=== PATIENT | male | born 1975 | race Caucasian/White ===

== ENCOUNTER 2016-07-26 11:00 | Emergency (ER) | payer MEDICAID ==
[~2016-07-26] VITALS: Ht 172.7 cm; Wt 114.3 kg
[~2016-07-26 11:00] MED LIST: LISI-646
[2016-07-26 12:13] LABS: Urine Bilirubin Negative (Negative); Urine Blood Negative /uL (Negative); Urine Color Yellow (Yellow); Urine Glucose Normal (Normal); Urine Hyaline Cast FEW /lpf (0 - 2); Urine Ketone Negative (Negative); Urine Nitrite Negative (Negative); Urine RBC <1 /hpf (0 - 3); Urine Squamous Epithelial Cell FEW /hpf (<5); Urine pH 7.5 (5.0-8.0)
[2016-07-26 12:44] LABS: Basophils # (auto) 0.1 uL; Basophils % (auto) 1.5 % (0.0-2.0); Eosinophils # (auto) 0 uL; Eosinophils % (auto) 0.3 % (0.0-7.0); Hematocrit 43.3 % (41.0-53.0); Hemoglobin 14.6 g/dL (13.5-17.5); Lymphocytes # (auto) 1.6 uL; Mean Corpuscular Hemoglobin 31.5 pg (28.0-32.0); Mean Corpuscular Hgb Conc. 33.6 g/dL (32.0-36.0); Mean Corpuscular Volume 93.8 fL (80.0-100.0); Mean Platelet Volume 8.7 fL (7.4-10.4); Monocytes # (auto) 0.6 uL; Monocytes % (auto) 7.4 % (0.0-12.0); Neutrophils # (auto) 5.7 uL; Neutrophils % (auto) 70.8 % (37.0-80.0); Platelet Count (auto) 180 10^3/uL (140-450)
[2016-07-26 12:54] LABS: BUN/Creatinine Ratio 19.8; Calcium 9.8 mg/dL (8.5-10.1); Potassium 4.3 mmol/L (3.5-5.1); Total Protein 9.2 g/dL (6.4-8.2)
[2016-07-26 19:35] LABS: Amylase 90 U/L (25-115)
[2016-07-26] MEDS ORDERED: METOPROLOL TARTRATE 50 MG TAB PO ONE (20:00)
[2016-07-27 01:18] VITALS: BP 141/99
[2016-07-28 09:06] LABS: PSA Free 0.1 ng/mL; Prostate Specific Antigen 0.4 ng/mL (0.0-4.0)
== END 2016-07-27 01:48 | disposition home or self-care (01) ==
LOC: ER 11:00
DX: K40.90 Unilateral inguinal hernia, without obstruction or gangrene, not specified as recurrent (principal); K57.90 Diverticulosis of intestine, part unspecified, without perforation or abscess without bleeding; R16.0 Hepatomegaly, not elsewhere classified; K76.0 Fatty (change of) liver, not elsewhere classified; Z79.899 Other long term (current) drug therapy; Z88.2 Allergy status to sulfonamides; I10 Essential (primary) hypertension
CPT/HCPCS: 36415; 74176; 76870; 80053; 81001; 82150; 83690; 84154; 85025; 94761

== ENCOUNTER 2018-01-05 07:35 | Inpatient (IN) | payer MEDICAID, OTHER ==
[~2018-01-05] VITALS: Ht 172.7 cm; Wt 103.1 kg
[2018-01-05] MEDS ORDERED: SODIUM CHLORIDE 0.9% 1,000 ML IV ONE ×3 (08:00→09:45)
[2018-01-05 08:14] LABS: Basophils # (auto) 0.1 uL; Basophils % (auto) 0.6 % (0.0-2.0); Eosinophils # (auto) 0 uL; Eosinophils % (auto) 0.1 % (0.0-7.0); Hematocrit 47.1 % (41.0-53.0); Lymphocytes # (auto) 2.3 uL; Lymphocytes % (auto) 15.8 % (10.0-50.0); Mean Corpuscular Hemoglobin 33.5 pg (28.0-32.0); Mean Corpuscular Volume 98.4 fL (80.0-100.0); Monocytes # (auto) 1.9 uL; Monocytes % (auto) 13.5 % (0.0-12.0); Neutrophils # (auto) 10.1 uL; Nucleated Red Blood Cells % 0.2 %; Platelet Count (auto) 194 10^3/uL (140-450); Red Blood Cells 4.78 10^6/uL (4.5-5.90); Red Cell Distribution Width 14.2 % (11.8-14.3); White Blood Cell 14.4 10^3/uL (4.4-10.8)
[2018-01-05 08:48] LABS: Alanine Aminotransferase 67 U/L (16-61); Albumin 4.2 g/dL (3.4-5.0); Alkaline Phosphatase 168 U/L (45-117); Anion Gap 24 (5-15); Aspartate Aminotransferase 123 U/L (15-37); Bilirubin, Total 3.1 mg/dL (0.2-1.0); Blood Alcohol < 3.0 mg/dL (0-5); Blood Urea Nitrogen 63 mg/dL (7-18); Calcium 10.1 mg/dL (8.5-10.1); Carbon Dioxide 20 mmol/L (21-32); Chloride 89 mmol/L (98-107); GFR African American 10 mL/min; GFR Non-African American 8 mL/min; Glucose 99 mg/dL (74-106); Potassium 3.6 mmol/L (3.5-5.1); Sodium 133 mmol/L (136-145); Total Protein 10.3 g/dL (6.4-8.2)
[2018-01-05] MEDS ORDERED: LORazepam 2MG/ML-1ML VIAL IV ONE ×2 (09:45)
[2018-01-05 10:32] LABS: INR 1.2 (0.9-1.15); Partial Thromboplastin Time 29.5 sec (23.78-33.04); Prothrombin Time 12.7 sec (9.27-12.13)
[2018-01-05] MEDS ORDERED: SODIUM CHLORIDE 0.9% 1,000 ML IV SCH (11:15)
[2018-01-05] MEDS ORDERED: chlordiazePOXIDE HCL 25 MG CAP PO ONE (11:15)
[2018-01-05] MEDS ORDERED: THIAMINE 100mg/ml INJ (200mg/2ml VIAL) IV ONE (11:15)
[2018-01-05] MEDS ORDERED: cefTRIAXone 1GM/10ml IVPUSH 10 ML IV ONE (11:15)
[2018-01-05] MEDS ORDERED: chlordiazePOXIDE HCL 25 MG CAP PO PRN (11:15)
[2018-01-05] MEDS ORDERED: LORazepam 2MG/ML-1ML VIAL IV PRN (11:15)
[2018-01-05] MEDS ORDERED: MORPHINE SULF INJ 2 MG/ML SYRINGE 1ML IV PRN ×3 (11:15)
[2018-01-05] MEDS ORDERED: TEMAZEPAM 15 MG CAP PO PRN (11:15)
[2018-01-05] MEDS ORDERED: NITROGLYCERIN 0.4 MG SL TAB SL PRN (11:15)
[2018-01-05] MEDS ORDERED: PROMETHAZINE HCL 25 MG/ML 1ML IV PRN (11:15)
[2018-01-05] MEDS ORDERED: LACTULOSE 20Gm/30ML SOLN PO PRN (11:15)
[2018-01-05] MEDS ORDERED: SODIUM CHLORIDE 0.9% 2,000 ML IV ONE (11:45)
[2018-01-05] MEDS: chlordiazePOXIDE HCL 5 MG CAP PO SCH ×2 (12:00→17:54)
[2018-01-05 12:10] LABS: Amylase 159 U/L (25-115); Lipase 374 U/L (73-393)
[2018-01-05] MEDS ORDERED: D5W IV SCH ×3 (12:15)
[2018-01-05] MEDS ORDERED: SOD CHL 0.45% IV SCH ×3 (12:15)
[2018-01-05] MEDS ORDERED: SODIUM BICARBONATE IV SCH ×3 (12:15)
[2018-01-05] MEDS: SODIUM BICARBONATE 50ML VIAL 50 ML in D5W/SOD CHL 0.45% 1,000 ML IV SCH ×2 (13:03→19:34)
[2018-01-05 13:57] LABS: Urine Bacteria NONE SEEN /hpf (None Seen); Urine Blood 3+ /uL (Negative); Urine Mucus FEW (None Seen); Urine Specific Gravity 1.014 (1.001-1.035); Urine WBC 23 /hpf (0 - 3)
[2018-01-05 16:24] LABS: Alcohol, Urine < 3.0 mg/dL (0-5); Amphetamine Screen, Urine NEGATIVE (NEGATIVE); Barbiturate Scree,Urine NEGATIVE (NEGATIVE); Benzodiazephine Screen, Urine NEGATIVE (NEGATIVE); Cannabinoid Screen, Urine POSITIVE (NEGATIVE); Cocaine Screen, Urine NEGATIVE (NEGATIVE); Opiate Scree,Urine NEGATIVE (NEGATIVE); Phencyclidine Screen, Urine NEGATIVE (NEGATIVE)
[2018-01-06] MEDS: chlordiazePOXIDE HCL 5 MG CAP PO SCH ×2 (00:12→06:27)
[2018-01-06] MEDS: SODIUM BICARBONATE 50ML VIAL 50 ML in D5W/SOD CHL 0.45% 1,000 ML IV SCH ×3 (02:35→16:35)
[2018-01-06 07:49] LABS: Albumin 3.1 g/dL (3.4-5.0); BUN/Creatinine Ratio 16.7; Bilirubin, Total 2.1 mg/dL (0.2-1.0); Calcium 8.1 mg/dL (8.5-10.1); Potassium 3.4 mmol/L (3.5-5.1); Total Protein 7.3 g/dL (6.4-8.2)
[2018-01-06 07:53] LABS: Amylase 160 U/L (25-115); Lipase 648 U/L (73-393)
[2018-01-06 07:55] LABS: Basophils # (auto) 0 uL; Basophils % (auto) 0.9 % (0.0-2.0); Eosinophils # (auto) 0 uL; Eosinophils % (auto) 0.8 % (0.0-7.0); Hematocrit 38.5 % (41.0-53.0); Hemoglobin 13.2 g/dL (13.5-17.5); Lymphocytes # (auto) 0.9 uL; Lymphocytes % (auto) 19.1 % (10.0-50.0); Mean Corpuscular Hemoglobin 33.8 pg (28.0-32.0); Mean Corpuscular Hgb Conc. 34.1 g/dL (32.0-36.0); Mean Corpuscular Volume 99.1 fL (80.0-100.0); Monocytes # (auto) 0.6 uL; Monocytes % (auto) 13.3 % (0.0-12.0); Neutrophils % (auto) 65.9 % (37.0-80.0); Nucleated Red Blood Cells % 0.1 %; Platelet Count (auto) 102 10^3/uL (140-450); Red Blood Cells 3.89 10^6/uL (4.5-5.90); Red Cell Distribution Width 13.5 % (11.8-14.3); White Blood Cell 4.5 10^3/uL (4.4-10.8)
[2018-01-06] MEDS: cefTRIAXone 1GM/10ml IVPUSH 10 ML IV SCH (09:18)
[2018-01-06] MEDS: THIAMINE 100mg/ml INJ (200mg/2ml VIAL) IV SCH (11:04)
[2018-01-06] MEDS: PANTOPRAZOLE 40 MG TAB PO SCH (11:05)
[2018-01-06] MEDS: ENOXAPARIN SOD 30 MG/0.3 ML SYRINGE SC SCH (11:05)
[2018-01-06] MEDS ORDERED: chlordiazePOXIDE HCL 25 MG CAP PO SCH (12:30)
[2018-01-06] MEDS ORDERED: MULTIPLE VITAMIN TAB PO ONE (14:00)
[2018-01-06 17:26] VITALS: BP 136/90
[2018-01-06] MEDS: chlordiazePOXIDE HCL 25 MG CAP PO SCH ×2 (18:41→21:34)
[2018-01-06] MEDS ORDERED: ALLO100T PO (18:50)
[2018-01-06] MEDS ORDERED: ENAL2.5T PO (18:50)
[2018-01-06 22:00] VITALS: BP 128/77
[2018-01-07] MEDS: chlordiazePOXIDE HCL 25 MG CAP PO SCH ×6 (01:48→21:46)
[2018-01-07 05:00] VITALS: BP 128/76
[2018-01-07] MEDS: SODIUM BICARBONATE 50ML VIAL 50 ML in D5W/SOD CHL 0.45% 1,000 ML IV SCH ×3 (06:30)
[2018-01-07 06:50] LABS: Basophils # (auto) 0 uL; Basophils % (auto) 0.8 % (0.0-2.0); Eosinophils # (auto) 0 uL; Eosinophils % (auto) 0.7 % (0.0-7.0); Hematocrit 37.5 % (41.0-53.0); Lymphocytes # (auto) 0.9 uL; Lymphocytes % (auto) 24.4 % (10.0-50.0); Mean Corpuscular Hemoglobin 34.2 pg (28.0-32.0); Mean Corpuscular Hgb Conc. 34.7 g/dL (32.0-36.0); Mean Corpuscular Volume 98.7 fL (80.0-100.0); Monocytes # (auto) 0.6 uL; Monocytes % (auto) 14.4 % (0.0-12.0); Neutrophils # (auto) 2.3 uL; Neutrophils % (auto) 59.7 % (37.0-80.0); Nucleated Red Blood Cells % 0.1 %; Platelet Count (auto) 93 10^3/uL (140-450); Red Blood Cells 3.81 10^6/uL (4.5-5.90); Red Cell Distribution Width 13.6 % (11.8-14.3); White Blood Cell 3.8 10^3/uL (4.4-10.8)
[2018-01-07 07:02] LABS: BUN/Creatinine Ratio 28.5; Bilirubin, Total 1.7 mg/dL (0.2-1.0); Calcium 8.5 mg/dL (8.5-10.1); Magnesium 2.5 mg/dL (1.6-2.6); Potassium 3.6 mmol/L (3.5-5.1); Total Protein 7.5 g/dL (6.4-8.2)
[2018-01-07 08:00] VITALS: BP 114/90
[2018-01-07 09:00] VITALS: BP 144/90
[2018-01-07] MEDS: THIAMINE 100mg/ml INJ (200mg/2ml VIAL) IV SCH (09:25)
[2018-01-07] MEDS: cefTRIAXone 1GM/10ml IVPUSH 10 ML IV SCH (09:25)
[2018-01-07] MEDS: ENOXAPARIN SOD 30 MG/0.3 ML SYRINGE SC SCH (09:25)
[2018-01-07] MEDS: PANTOPRAZOLE 40 MG TAB PO SCH (09:25)
[2018-01-07] MEDS: MULTIPLE VITAMIN TAB PO SCH (09:26)
[2018-01-07 13:00] VITALS: BP 138/87
[2018-01-07 17:00] VITALS: BP 133/86
[2018-01-07 22:00] VITALS: BP 153/93
[2018-01-08] MEDS: chlordiazePOXIDE HCL 25 MG CAP PO SCH ×4 (02:00→14:00)
[2018-01-08 05:00] VITALS: BP 118/74
[2018-01-08 07:21] LABS: Eosinophils # (auto) 0 uL; Monocytes # (auto) 0.7 uL
[2018-01-08 07:23] LABS: Basophils # (auto) 0 uL; Basophils % (auto) 0.6 % (0.0-2.0); Eosinophils % (auto) 0.4 % (0.0-7.0); Hematocrit 38.8 % (41.0-53.0); Hemoglobin 13.4 g/dL (13.5-17.5); Lymphocytes # (auto) 0.6 uL; Lymphocytes % (auto) 10.6 % (10.0-50.0); Mean Corpuscular Hemoglobin 34.5 pg (28.0-32.0); Mean Corpuscular Hgb Conc. 34.6 g/dL (32.0-36.0); Mean Corpuscular Volume 99.6 fL (80.0-100.0); Monocytes % (auto) 12.3 % (0.0-12.0); Neutrophils % (auto) 76.1 % (37.0-80.0); Platelet Count (auto) 104 10^3/uL (140-450); Red Cell Distribution Width 13.5 % (11.8-14.3); White Blood Cell 5.3 10^3/uL (4.4-10.8)
[2018-01-08 07:33] LABS: Albumin 3.1 g/dL (3.4-5.0); Calcium 8.7 mg/dL (8.5-10.1)
[2018-01-08 07:35] LABS: BUN/Creatinine Ratio 20.8
[2018-01-08 07:38] LABS: Bilirubin, Total 1.8 mg/dL (0.2-1.0); Total Protein 7.9 g/dL (6.4-8.2)
[2018-01-08 08:00] VITALS: BP 137/71
[2018-01-08 09:00] VITALS: BP_SYST 122; BP_SYST 137; BP_DIAS 71; BP_DIAS 86
[2018-01-08] MEDS: ENOXAPARIN SOD 30 MG/0.3 ML SYRINGE SC SCH (09:26)
[2018-01-08] MEDS: cefTRIAXone 1GM/10ml IVPUSH 10 ML IV SCH (09:26)
[2018-01-08] MEDS: PANTOPRAZOLE 40 MG TAB PO SCH (09:26)
[2018-01-08] MEDS: MULTIPLE VITAMIN TAB PO SCH (09:26)
[2018-01-08] MEDS: THIAMINE 100mg/ml INJ (200mg/2ml VIAL) IV SCH (09:27)
[2018-01-08 12:08] VITALS: BP 137/71
[2018-01-08 13:00] VITALS: BP 122/86
== END 2018-01-08 15:00 | disposition home or self-care (01) | DRG 282 ==
LOC: ER 07:35 → OVERFLOW 07:36 → TELE-EAST 01-06 17:14
PROVIDERS: ADMIT Internal Medicine; ATTEND Internal Medicine
DX: K85.90 Acute pancreatitis without necrosis or infection, unspecified (principal); N17.0 Acute kidney failure with tubular necrosis; K65.9 Peritonitis, unspecified; F10.221 Alcohol dependence with intoxication delirium; M62.82 Rhabdomyolysis; N18.4 Chronic kidney disease, stage 4 (severe); D69.59 Other secondary thrombocytopenia; E88.09 Other disorders of plasma-protein metabolism, not elsewhere classified; E87.1 Hypo-osmolality and hyponatremia; F10.231 Alcohol dependence with withdrawal delirium; E86.9 Volume depletion, unspecified; K70.31 Alcoholic cirrhosis of liver with ascites; D64.9 Anemia, unspecified; F41.9 Anxiety disorder, unspecified; Z87.891 Personal history of nicotine dependence; I12.9 Hypertensive chronic kidney disease with stage 1 through stage 4 chronic kidney disease, or unspecified chronic kidney disease; Z82.49 Family history of ischemic heart disease and other diseases of the circulatory system; K76.0 Fatty (change of) liver, not elsewhere classified; M10.9 Gout, unspecified; Z88.2 Allergy status to sulfonamides; F12.10 Cannabis abuse, uncomplicated
CPT/HCPCS: 36415; 51702; 71045; 76700; 80053; 80061; 80307; 80320; 81001; 82150; 82550; 83690; 83735; 84443; 85025; 85610; 85652; 85730; 87040; 87077; 87086; 87186; 87493; 93005; 94761; 96361; 96374; 96375; G0378